=== PATIENT | male | born 1990 | race Caucasian/White ===

== ENCOUNTER 2024-04-13 14:22 | Emergency (ER) | payer BC, OTHER ==
[~2024-04-13] VITALS: Ht 182.9 cm; Wt 84.0 kg
[2024-04-13 16:22] VITALS: BP 129/78; TEMP 97; O2SAT 98
== END 2024-04-13 16:24 | disposition home or self-care (01) ==
LOC: EDSEX 14:22 → M ED 14:22
DX: S06.0X0A Concussion without loss of consciousness, initial encounter (principal); Y92.9 Unspecified place or not applicable; Y93.9 Activity, unspecified; Y99.9 Unspecified external cause status; W22.8XXA Striking against or struck by other objects, initial encounter; Z88.1 Allergy status to other antibiotic agents; Z88.8 Allergy status to other drugs, medicaments and biological substances